=== PATIENT | female | born 1955 | race Two or more races ===

== ENCOUNTER 2020-01-28 07:58 | Emergency (ER) | payer OTHER ==
[~2020-01-28] VITALS: Ht 157.5 cm; Wt 81.6 kg
[2020-01-28] MEDS ORDERED: HYDROCODONE/APAP 5/325MG 1 EACH TABLET ONE (08:23)
[2020-01-28] MEDS: HYDROCODONE/APAP 5/325MG 1 EACH TABLET PO ONE (08:26)
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
[2020-01-28 09:10] VITALS: BP 131/77
--- NOTE | 2020-01-28 09:10 | NUR ---
Patient discharged to home in stable condition. Written and verbal after care instructions given. Patient verbalizes understanding of instruction.
== END 2020-01-28 09:16 | disposition home or self-care (01) ==
LOC: ER 07:59
DX: M54.5 Low back pain (principal); I10 Essential (primary) hypertension; I48.91 Unspecified atrial fibrillation; E11.9 Type 2 diabetes mellitus without complications; W18.39XA Other fall on same level, initial encounter; Y93.9 Activity, unspecified; Y92.89 Other specified places as the place of occurrence of the external cause; Y99.8 Other external cause status
CPT/HCPCS: 72110-TC